=== PATIENT | male | born 1975 | race African-American/Black ===

== ENCOUNTER 2023-09-09 02:50 | Day surgery (SDC) | payer OTHER, SELFPAY ==
[2023-09-01 09:23] VITALS: BMI 28.0
--- NOTE | 2023-09-07 10:30 | SUR.PREOP ---
Patient called regarding upcoming procedure. Unable to leave a message as voicemail as not been set up.
[2023-09-09] MEDS: LACTATED RINGERS 1,000 ML 150 ML IV CONT (07:36)
[2023-09-09 07:44] LABS: Glucose Point of Care 206 mg/dl (65-105)
[2023-09-09 07:54] VITALS: BP 119/67; PULSE 80; RESP 16; TEMP 36.3; O2SAT 99; BMI 27.3
--- NOTE | 2023-09-09 08:19 | WPDANESEPPF ---
Anes - Initial Pre Proc Eval Procedure: Operation Date: 09/09/23 08:30 Proposed Procedures p Esophagogastroduodenoscopy - Shoaib Cruz MD Date/Time: 09/09/23 08:19 Surgeon: Shoaib Cruz MD Pre Op Diagnosis: unspecified cirrhosis of liver, epigastric pain Patient Data Age: 48 Gender: M Height: 1.75 m Weight: 84 kg Last Vital Signs Temp 97.3 F L 09/09/23 07:54 Pulse 80 09/09/23 07:54 Resp 16 09/09/23 07:54 BP 119/67 09/09/23 07:54 Pulse Ox 99 09/09/23 07:54 O2 Del Method Room Air 09/09/23 07:54 Allergies Allergy/AdvReac Type Severity Reaction Status Date / Time No Known Allergies Allergy Verified 09/09/23 07:23 Home Medications Medication Instructions Recorded Confirmed Type insulin NPH isoph U-100 human 100 60 unit subcut QAM 01/09/23 09/09/23 History unit/mL subcutaneous suspension lisinopril 5 mg tablet 5 mg PO DAILY 01/09/23 09/09/23 History metformin 1,000 mg tablet 1,000 mg PO BID 01/09/23 09/09/23 History tamsulosin 0.4 mg capsule 0.8 mg PO HS 01/09/23 09/09/23 History atorvastatin 40 mg tablet 40 mg PO HS 09/01/23 09/09/23 History bisacodyl 5 mg tablet,delayed 10 mg PO BID PRN Constipation 09/01/23 09/09/23 History release empagliflozin 10 mg tablet 10 mg PO DAILY 09/01/23 09/09/23 History glucose 4 gram chewable tablet 4 g PO BID PRN Hypoglycemia 09/01/23 09/09/23 History ibuprofen 600 mg tablet 600 mg PO DAILY PRN Pain 09/01/23 09/09/23 History insulin NPH isoph U-100 human 100 12 unit subcut QPM 09/01/23 09/09/23 History unit/mL subcutaneous suspension insulin regular human 100 unit/mL 1 sliding scale dose subcut 09/01/23 09/09/23 History injection solution USEASDIRECTD lactulose 10 gram/15 mL oral 10 g PO BID PRN DIRECTED 09/01/23 09/09/23 History solution nadolol 20 mg tablet 20 mg PO BID 09/01/23 09/09/23 History pantoprazole 40 mg tablet,delayed 40 mg PO QAM 09/01/23 09/09/23 History release Laboratory Tests 09/09/23 07:41 POC Capillary Glucose 206 H mg/dl (65-105) Patient hx anesthesia problems: none Family hx anesthesia problems: none Results Review: All pre-operative results and documents have been reviewed as part of the pre-operative evaluation. [facility] Past Medical History Medical History (Updated 07/02/23 @ 12:16 by Shoaib Cruz MD) Cirrhosis Dermatitis Diabetes Disease of pancreas Enlarged prostate Epigastric pain Esophageal varices History of alcohol abuse Hypertension Portal hypertension Thrombocytopenia Social History Social History Smoking status: Current every day smoker Tobacco type: cigarettes Substance use: former Substance use type: other Other substance usage details: ETOH Living arrangements: incarcerated Anes - Eval Final PreProcedure Day of Procedure 09/09/23 08:19 Patient weight: normal Heart: regular rate and rhythm Lungs: clear to auscultation Airway: Mallampati scale class II Neurological: alert and oriented Last oral intake: >/= 8 hours ASA classification: III Emergent: no Anesthetic plan: proceed Anesthesia type and monitoring: general GIVS and standard monitoring Results Review: All pre-operative results and documents have been reviewed as part of the pre-operative evaluation. Informed Consent: The patient's anesthetic plan and its attendant risks and benefits were discussed with the patient/family/POA. Questions were solicited and answers provided to the satisfaction of the patient/family/POA.
--- NOTE | 2023-09-09 08:56 | PM.HPGS ---
History of Present Illness History of Present Illness Consent: Risks, benefits, and alternatives have been discussed and questions answered. Patient agrees to proceed with procedure. Chief complaint: unspecified cirrhosis of liver, epigastric pain Narrative: Jewel Spencer is a 48 year old male with epigastric discomfort, he is a prisoner and cirrhosis (? alcoholic, h/o DM), also using nadolol (h/o of esophageal varices per records) Review of Systems Constitutional: Constitutional: Denies headache(s) and Denies weakness Eyes: Eyes: Denies blurry vision ENT: Reports Normal hearing present, Denies headache(s) and Denies neck pain Cardiovascular: Cardiovascular: Denies chest pain and Denies dyspnea Respiratory: Respiratory: Denies dyspnea Gastrointestinal: Gastrointestinal: Reports no additional gastrointestinal complaints Genitourinary: Genitourinary: Denies dysuria Musculoskeletal: Musculoskeletal: Denies neck pain Integumentary/Breasts: Skin/Breast: Denies dry skin Neurologic: Reports Normal hearing present, Denies headache(s) and Denies weakness Psychiatric: Psychiatric: Denies anxiety Endocrine: Endocrine: Denies change in body appearance Hematologic/Lymphatic: Hematologic/Lymphatic: Denies easy bleeding Allergic/Immunologic: Allergic/Immunologic: Denies urticaria PMFSH Past Medical History Medical History (Updated 07/02/23 @ 12:16 by Shoaib Cruz MD) Cirrhosis Dermatitis Diabetes Disease of pancreas Enlarged prostate Epigastric pain Esophageal varices History of alcohol abuse Hypertension Portal hypertension Thrombocytopenia Social History Social History Smoking status: Current every day smoker Tobacco type: cigarettes Substance use: former Substance use type: other Other substance usage details: ETOH Living arrangements: incarcerated Meds Home Medications and Allergies Home Medications Medication Instructions Recorded Confirmed Type insulin NPH isoph U-100 human 100 60 unit subcut QAM 01/09/23 09/09/23 History unit/mL subcutaneous suspension lisinopril 5 mg tablet 5 mg PO DAILY 01/09/23 09/09/23 History metformin 1,000 mg tablet 1,000 mg PO BID 01/09/23 09/09/23 History tamsulosin 0.4 mg capsule 0.8 mg PO HS 01/09/23 09/09/23 History atorvastatin 40 mg tablet 40 mg PO HS 09/01/23 09/09/23 History bisacodyl 5 mg tablet,delayed 10 mg PO BID PRN Constipation 09/01/23 09/09/23 History release empagliflozin 10 mg tablet 10 mg PO DAILY 09/01/23 09/09/23 History glucose 4 gram chewable tablet 4 g PO BID PRN Hypoglycemia 09/01/23 09/09/23 History ibuprofen 600 mg tablet 600 mg PO DAILY PRN Pain 09/01/23 09/09/23 History insulin NPH isoph U-100 human 100 12 unit subcut QPM 09/01/23 09/09/23 History unit/mL subcutaneous suspension insulin regular human 100 unit/mL 1 sliding scale dose subcut 09/01/23 09/09/23 History injection solution USEASDIRECTD lactulose 10 gram/15 mL oral 10 g PO BID PRN DIRECTED 09/01/23 09/09/23 History solution nadolol 20 mg tablet 20 mg PO BID 09/01/23 09/09/23 History pantoprazole 40 mg tablet,delayed 40 mg PO QAM 09/01/23 09/09/23 History release Allergies Allergy/AdvReac Type Severity Reaction Status Date / Time No Known Allergies Allergy Verified 09/09/23 07:23 Vital Signs Vital Signs - 24 hr 09/09/23 07:54 Temperature 97.3 F L Pulse Rate 80 Respiratory Rate 16 Blood Pressure 119/67 Pulse Oximetry 99 Oxygen Delivery Room Air Exam Const: General: comfortable and no acute distress HENMT: Face/Nose/Sinus: Normal nares present Eyes: General: appearance normal, both eyes and all related structures Neck: Neck: no JVD Resp: Auscultation: clear to auscultation bilaterally Cardio: Rate: regular rate Rhythm: regular rhythm GI: Inspection: non-distended GI Palp: Yes Soft to palpation Skin: General skin exam: normal color Jewel
[2023-09-09] MEDS: BENZOCAINE (*SP) 60 ML SPRAY CAN (HURRICAINE) 1 SPRAY MUCOUS MEM (08:59)
[2023-09-09 09:05] VITALS: BP 115/73; PULSE 73; RESP 26; O2SAT 98
[2023-09-09 09:15] VITALS: BP 117/80; PULSE 72; RESP 20; O2SAT 98
[2023-09-09 09:31] LABS: Glucose Point of Care 141 mg/dl (65-105)
== END 2023-09-09 09:42 | disposition home or self-care (01) ==
PROVIDERS: Visit Provider Internal Medicine Gastroenterology
PROC: 0DJ08ZZ Inspection of Upper Intestinal Tract, Via Natural or Artificial Opening Endoscopic (ICD-10-PCS; CPT 43235; principal; 2023-09-09 08:30)
DX: K74.60 Unspecified cirrhosis of liver (principal); I85.10 Secondary esophageal varices without bleeding; K29.50 Unspecified chronic gastritis without bleeding; B96.81 Helicobacter pylori [H. pylori] as the cause of diseases classified elsewhere; I10 Essential (primary) hypertension; E11.9 Type 2 diabetes mellitus without complications; K76.6 Portal hypertension; N40.0 Benign prostatic hyperplasia without lower urinary tract symptoms; F17.210 Nicotine dependence, cigarettes, uncomplicated; Z79.4 Long term (current) use of insulin; Z79.84 Long term (current) use of oral hypoglycemic drugs
CPT/HCPCS: 43239; 82948; 88305; 88342; J2704; J7120